=== PATIENT | male | born 1940 | race Caucasian/White ===

== ENCOUNTER 2019-03-02 14:29 | Outpatient (CLI) | payer MEDICARE, BC ==
--- NOTE | 2019-03-03 07:51 | MRI ---
MR OF THE PELVIS WITH AND WITHOUT CONTRAST INDICATION: High PSA with history of BPH COMPARISON: None TECHNIQUE: Multiplanar, multisequence MR images were obtained of the pelvis with and without IV contr ast. 17 cc of MultiHance was utilized for the examination. The examination was reviewed on a separate [employer] 3-D workstation for multiplanar metric evaluation. FINDINGS: Prostate size: The prostate measured 7.2 x 6.0 x 6.7cm. 130.71 cc. Peripheral zone: No area of restricted diffusion is seen within the peripheral zone. Central zone: No suspicious signal abnormality or focal lesion. There are numerous encapsulated heter ogeneous BPH nodule seen within the central zone. Neural vasculature: No evidence of neurovascular invasion Regional lymphadenopathy: None Dynamic contrast enhancement: Negative. Osseous structures: No suspicious osseous lesion is identified. Additional findings: None.. IMPRESSION: 1. PIRADS 1-Very Low (clinically significant cancer is highly unlikely to be present.) 2. No suspicious signal abnormality or region of enhancement is demonstrated to suggest the presence of clinically significant malignancy. 3. There is enlargement of the prostate with numerous heterogeneous BPH nodule seen within the centra l zone.
== END 2019-03-02 14:30 | disposition home or self-care (01) ==
LOC: TBSIIMAG 14:29
PROVIDERS: ATTEND Urology
DX: N40.3 Nodular prostate with lower urinary tract symptoms (principal)
CPT/HCPCS: 72197; 82565